=== PATIENT | female | born 1940 | race Caucasian/White ===

== ENCOUNTER 2019-08-03 23:21 | Emergency (ER) | payer MEDICARE, OTHER ==
[2019-08-04] MEDS ORDERED: Midazolam 1 MG/ML 2 ML SDV IVPUSH ONE (00:37)
[2019-08-04] MEDS ORDERED: Rocuronium 100 MG/10 ML MDV IVPUSH SCH (00:45)
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
[2019-08-04] MEDS: Sodium Chloride 0.9% 10 ML Syringe FLUSH PRN ×4 (01:15→04:20)
[2019-08-04] MEDS: Rocuronium 50 MG/5 ML Vial IV PRN ×6 (01:15→06:15)
[2019-08-04] MEDS: Midazolam 1 MG/ML 2 ML SDV IVPUSH SCH ×5 (02:19→06:15)
[2019-08-04] MEDS ORDERED: Sodium Polystyrene Sulfonate 15 GM/60 ML Susp 60 ML Bot RECTAL ONE (03:26)
[2019-08-04] MEDS ORDERED: Calcium Gluconate 10% 1 GM/10 ML SDV IVPUSH ONE (06:29)
== END 2019-08-04 06:45 | disposition other institution (70) ==
LOC: FB.ED 23:21
DX: I44.2 Atrioventricular block, complete (principal); Z88.1 Allergy status to other antibiotic agents; Z79.82 Long term (current) use of aspirin
CPT/HCPCS: 36415; 51702; 84132; 96374; 96375; 99285; A9270; J0610; J2250; 82962; J3490